=== PATIENT | female | born 1990 | race African-American/Black ===

== ENCOUNTER 2018-02-20 08:37 | Emergency (ER) | payer OTHER ==
[~2018-02-20] VITALS: Ht 157.5 cm; Wt 58.5 kg
[~2018-02-20 08:37] MED LIST: DOXYCYCLINE 10100 MG PO; FLOVENT HFA 1110 MCG INH; GUAIFENESIN/COD10 M1 PO; PREDNISONE 20 M20 MG PO; VENTOLIN HFA 1818 GM INH
[2018-02-20] MEDS ORDERED: VENTOLIN HFA 1818 GM INH (11:01)
[2018-02-20] MEDS ORDERED: PREDNISONE 10 M10 M1 PO (11:01)
== END 2018-02-20 11:33 | disposition home or self-care (01) ==
LOC: ER 08:37
DX: J45.901 Unspecified asthma with (acute) exacerbation (principal); Z87.891 Personal history of nicotine dependence